=== PATIENT | female | born 1950 | race Caucasian/White ===

== ENCOUNTER 2018-10-14 11:37 | Outpatient (CLI) | payer MEDICARE, OTHER ==
[~2018-10-14] VITALS: Ht 160 cm; Wt 82.7 kg
[2018-10-14 11:45] VITALS: BP 169/72
[2018-10-14] MEDS ORDERED: OMALIZUMAB 150MG 1ML SYRINGE (XOLAIR) (J2357 PER 5MG) SQ ONE (12:00)
[2018-10-14] MEDS ORDERED: FENO145T7 PO (12:14)
[2018-10-14] MEDS ORDERED: SIMV20TA22 PO (12:14)
[2018-10-14] MEDS ORDERED: AMLO25TA PO (12:15)
[2018-10-14] MEDS ORDERED: FURO20TA2 PO (12:16)
[2018-10-14] MEDS ORDERED: LOSA50TA88 PO (12:16)
[2018-10-14] MEDS ORDERED: LINZ290C PO (12:16)
[2018-10-14] MEDS ORDERED: EPIP0.3I2 IM (12:17)
[2018-10-14] MEDS ORDERED: XOLA150I SC (12:18)
[2018-10-14] MEDS ORDERED: ASPI81TA85 PO (12:19)
[2018-10-14] MEDS ORDERED: CO Q200C10 PO (12:19)
[2018-10-14] MEDS ORDERED: MULTCAP PO (12:20)
[2018-10-14] MEDS ORDERED: PEPC10TA6 PO (12:20)
[2018-10-14] MEDS ORDERED: NIAC500T9 PO (12:21)
[2018-10-14] MEDS ORDERED: D3 U5000 PO (12:22)
[2018-10-14] MEDS ORDERED: BIOT1CAP2 PO (12:23)
[2018-10-14] MEDS ORDERED: OCUVCAP2 PO (12:23)
[2018-10-14] MEDS ORDERED: KRIL300C2 PO (12:25)
[2018-10-14] MEDS ORDERED: VITA500C19 PO (12:25)
[2018-10-14] MEDS ORDERED: VITATAB47 PO (12:26)
[2018-10-14 12:59] VITALS: BP 153/73
== END 2018-10-14 13:00 | disposition home or self-care (01) ==
LOC: M INFU 11:37
PROVIDERS: ATTEND Family Medicine
DX: L50.1 Idiopathic urticaria (principal); Z79.82 Long term (current) use of aspirin; Z79.899 Other long term (current) drug therapy; Z88.0 Allergy status to penicillin; Z88.2 Allergy status to sulfonamides; Z88.5 Allergy status to narcotic agent; Z88.8 Allergy status to other drugs, medicaments and biological substances
CPT/HCPCS: 96372; J2357

== ENCOUNTER 2018-11-25 09:48 | Outpatient (CLI) | payer MEDICARE, OTHER ==
[~2018-11-25] VITALS: Ht 160 cm; Wt 82.7 kg
[2018-11-25 09:45] VITALS: BP 165/77
[~2018-11-25 09:48] MED LIST: AMLO25TA PO; ASPI81TA85 PO; BIOT1CAP2 PO; CO Q200C10 PO; D3 U5000 PO; EPIP0.3I2 IM; FENO145T13 PO; FURO20TA2 PO; KRIL300C2 PO; LINZ290C PO; LOSA50TA88 PO; MULTCAP PO; NIAC500T9 PO; OCUVCAP2 PO; PEPC10TA6 PO; SIMV20TA2 PO; VITA500C19 PO; VITATAB47 PO; XOLA150I SC
[2018-11-25 10:30] VITALS: BP 152/84
[2018-11-25] MEDS ORDERED: OMALIZUMAB 150MG 1ML SYRINGE (XOLAIR) (J2357 PER 5MG) SQ ONE (11:00)
== END 2018-11-25 10:30 | disposition home or self-care (01) ==
LOC: M INFU 09:48
PROVIDERS: ATTEND Family Medicine
DX: L50.1 Idiopathic urticaria (principal)
CPT/HCPCS: 96372; J2357

== ENCOUNTER 2020-10-25 12:54 | Outpatient (CLI) | payer MEDICARE, OTHER ==
[~2020-10-25] VITALS: Ht 160 cm; Wt 82.7 kg
[~2020-10-25 12:54] MED LIST changes: -ASPI81TA85 PO; +ASPI81TA86 PO; -FENO145T13 PO; +FENO145T7 PO; -NIAC500T9 PO; +NIAC500T93 PO; -SIMV20TA2 PO; +SIMV20TA22 PO
[2020-10-25] MEDS ORDERED: OMALIZUMAB 150MG 1ML SYRINGE (XOLAIR) (J2357 PER 5MG) SQ ONE (13:00)
[2020-10-25 13:04] VITALS: BP 176/79
[2020-10-25 14:30] VITALS: BP 182/76
== END 2020-10-25 14:30 | disposition home or self-care (01) ==
LOC: M INFU 12:54
DX: L50.1 Idiopathic urticaria (principal); Z88.2 Allergy status to sulfonamides
CPT/HCPCS: 96372; J2357

== ENCOUNTER 2020-12-06 12:48 | Outpatient (CLI) | payer MEDICARE, OTHER ==
[~2020-12-06] VITALS: Ht 160 cm; Wt 82.7 kg
[~2020-12-06 12:48] MED LIST changes: +OMALIZUMAB 150MG 1ML SYRINGE (XOLAIR) (J2357 PER 5MG) SQ ONE
[2020-12-06 12:55] VITALS: BP 154/71
[2020-12-06 13:40] VITALS: BP 148/68
== END 2020-12-06 14:25 | disposition home or self-care (01) ==
LOC: M INFU 12:48
DX: L50.1 Idiopathic urticaria (principal); Z88.2 Allergy status to sulfonamides; Z88.1 Allergy status to other antibiotic agents
CPT/HCPCS: 96372; J2357

== ENCOUNTER 2021-11-06 10:09 | Outpatient (CLI) | payer MEDICARE, OTHER ==
[~2021-11-06] VITALS: Ht 160 cm; Wt 77.3 kg
[~2021-11-06 10:09] MED LIST changes: +LOSA50TA28 PO; -LOSA50TA88 PO; -OMALIZUMAB 150MG 1ML SYRINGE (XOLAIR) (J2357 PER 5MG) SQ ONE; +OMALIZUMAB 150MG 1ML SYRINGE (XOLAIR) SC ONE
[2021-11-06 10:30] VITALS: BP 176/81
[2021-11-06 11:20] VITALS: BP 170/86
== END 2021-11-06 11:20 | disposition home or self-care (01) ==
LOC: M INFU 10:09
PROVIDERS: ATTEND Allergy & Immunology
DX: L50.1 Idiopathic urticaria (principal); Z88.2 Allergy status to sulfonamides; Z88.8 Allergy status to other drugs, medicaments and biological substances
CPT/HCPCS: 96372; J2357